=== PATIENT | female | born 1995 | race Caucasian/White ===

== ENCOUNTER → 2023-10-17 10:57 | Outpatient (BNVA) | payer SELFPAY | PROVIDERS: Family Provider Pediatrics; PCP Pediatrics; Visit Provider Emergency Medicine | DX: B34.9 Viral infection, unspecified (principal); J10.1 Influenza due to other identified influenza virus with other respiratory manifestations | CPT/HCPCS: 87400 ==

== ENCOUNTER → 2024-11-02 09:35 | Outpatient (BNVA) | payer SELFPAY | PROVIDERS: PCP Nurse Practitioner; Visit Provider Nurse Practitioner | DX: R21 Rash and other nonspecific skin eruption (principal); R11.2 Nausea with vomiting, unspecified; Z91.018 Allergy to other foods | CPT/HCPCS: 80053; 82785; 85025; 86001; 86003; 86008 ==